=== PATIENT | male | born 1985 | race Caucasian/White ===

== ENCOUNTER 2017-02-26 17:22 | Emergency (ER) | payer SELFPAY ==
[2017-02-26] MEDS ORDERED: HYOSCYAMINE SULFATE 0.125 MG TAB PO ONE (17:47)
[2017-02-26] MEDS ORDERED: MAG HYDROX/AL HYDROX/SIMETH 30 ML UDCUP PO ONE (17:47)
[2017-02-26 17:51] LABS: % IMMATURE GRANULYOCYTES 0.3 % (0.0-1.1); ABSOLUTE IMMATURE GRANULOCYTES 0.04 10^3/uL (0.00-0.10); ADD DIFF? NO; ADD MORPH? NO; ADD SCAN? NO; ATYPICAL LYMPHOCYTE FLAG 10 (0-99); FRAGMENT RBC FLAG 0 (0-99); HEMATOCRIT 48.7 % (40.0-51.0); HEMOGLOBIN 17.7 g/dL (13.7-17.5); LEFT SHIFT FLG 0 (0-99); LIPEMIA HEMOLYSIS FLAG 90 (0-99); MEAN CELL HEMOGLOBIN 30.3 pg (27.9-34.1); MEAN CELL HEMOGLOBIN CONCENTR. 36.3 g/dL (32.4-36.7); MEAN CELL VOLUME 83.4 fL (81.5-99.8); MEAN PLATELET VOLUME 10.4 fL (8.7-11.7); PLATELET CLUMPS FLAG 0 (0-99); PLATELET COUNT 398 10^3/uL (150-400); RED BLOOD CELL COUNT 5.84 10^6/uL (4.40-6.38); RED CELL DISTRIBUTION WIDTH 12.3 % (11.5-15.2)
--- NOTE | 2017-02-26 17:53 | EDPHY ---
H & P Time Seen by Provider: 02/26/17 17:33 HPI/ROS: This patient reports epigastric and right upper quadrant pain intermittently for the past 2 weeks. He describes this as a dull pressure and pushing sensation that typically last for about 10 minutes at a time and then resolves. It does not radiate. He currently has the pain at if 3/10 intensity. In addition, over the past 1 week he describes substernal chest pressure that is also dull in nature peak intensity 4/10 also intermittent. It seems unrelated in timing to the upper belly pain. He does have a cough for the past 1 week that is primarily dry cough with slightly tight chest but he reports some sputum production in the morning that is green in color. He also reports some fits of coughing . However, he also does not feel that there is a correlation between breathing or coughing and the chest discomfort he is experiencing intermittently. ROS: One-week history of fevers and chills. No other constitutional symptoms. HEENT: No significant nasal congestion or face pain. No sore throat. Neuro: No headache no focal neuro symptoms. Pulmonary: No hemoptysis. No pleuritic pain. No respiratory distress. Cardiovascular: No heart palpitations lightheadedness or lower extremity swelling. GI: He has some nausea but no vomiting. He still tolerating good p.o. intake. He reports slightly loose stools but no minoo diarrhea. No blood in his stools or dark tarry stools. : No symptoms Integumentary: No rash or other complaints Endocrine: No complaints Complete ROS is otherwise negative Source: Patient Exam Limitations: No limitations - Personal History Current Tetanus Diphtheria and Acellular Pertussis (TDAP): Yes - Medical/Surgical History PMH: Mild asthma. Otherwise healthy Hx Asthma: Yes Hx Chronic Respiratory Disease: No Hx Diabetes: No Hx Cardiac Disease: No Hx Renal Disease: No Hx Cirrhosis: No Hx Alcoholism: No Hx HIV/AIDS: No Hx Splenectomy or Spleen Trauma: No Other PMH: Asthma - Family History Significant Family History: Heart disease (His father has a history of coronary artery disease with stents but not until he was in his 70s.) - Social History Smoking Status: Never smoked Alcohol Use: Rarely Drug Use: Marijuana Additional Social History: No cocaine use - Physical Exam Exam: General Appearance: Alert, no distress. Eyes: Pupils equal and round no pallor or injection. ENT, Mouth: Mucous membranes moist. Respiratory: Min. ronchi. No wheezing is appreciated. No rales. Cardiovascular: Regular rate and rhythm. No murmur gallop rub. No JVD. No peripheral edema. Gastrointestinal: Normoactive, soft, minimal epigastric tenderness with no guarding or rebound. No organomegaly. Neurological: GCS 15 with no focal sensory or motor deficits. Skin: Warm and dry, no rashes. Musculoskeletal: Neck is supple nontender. Extremities are symmetrical, full range of motion. Psychiatric: Mood and affect normal DIFFERENTIAL DIAGNOSIS: After history and physical exam differential diagnosis was considered for bronchitis, asthma exacerbation, gastritis, cholecystitis, pancreatitis, pericarditis, GERD, esophagitis, coronary artery disease, Constitutional: Initial Vital Signs Temperature (C) 37.2 C 02/26/17 17:29 Heart Rate 87 02/26/17 17:29 Respiratory Rate 18 02/26/17 17:29 Blood Pressure 132/105 H 02/26/17 17:29 O2 Sat (%) 100 02/26/17 17:29 O2 Delivery Mode Room Air Allergies/Adverse Reactions: naproxen sodium [From Aleve] Allergy (Unknown, Verified 10/23/16 21:53) Unknown Home Medications: Medication Instructions Recorded Albuterol 5 mg/ml INH 02/26/17 Albuterol Hfa Anes Only [Proair 2 puffs IH Q4 PRN #1 mdi 02/26/17 Hfa Icu (*)] Azithromycin [Zithromax] 250 mg PO DAILY #6 tab 02/26/17 Pantoprazole Sodium [Protonix 40mg 40 mg PO DAILY #30 tab 02/26/17 (*)] Medical Decision Making - Diagnostics EKG Interpretation: 12 lead EKG performed at 5:51 p.m. reveals sinus rhythm at 73 Intervals: Normal throughout [place]: Normal throughout ST segments: Normal throughout Overall assessment: Normal EKG ED Course/Re-evaluation: GI cocktail with some improvement in symptoms Discussion: Patient with bronchitis and epigastric pain. Workup here today reveals no evidence of coronary syndrome, PE, pneumonia, pneumothorax or other concerning findings. Clinically does have bronchitis and counseled him regarding this. I suspect he has an element of gastritis contributing to his symptoms or GERD. I counseled patient regarding this. - Data Points Laboratory Results: Laboratory Results 02/26/17 17:40 02/26/17 17:40 Medications Given: Discontinued Medications Al Hydroxide/Mg Hydroxide (Maalox Susp) 30 ml PO ONCE ONE Stop: 02/26/17 17:48 Last Admin: 02/26/17 17:54 Dose: 30 ml Hyoscyamine Sulfate (Levsin, Hyomax-Sl) 0.25 mg PO ONCE ONE Stop: 02/26/17 17:48 Last Admin: 02/26/17 17:53 Dose: 0.25 mg Departure - Departure Disposition: Home, Routine, Self-Care Clinical Impression: Upper abdominal pain Acute bronchitis Qualifiers: Bronchitis organism: unspecified organism Qualified Code(s): J20.9 - Acute bronchitis, unspecified Chest pain Qualifiers: Chest pain type: unspecified Qualified Code(s): R07.9 - Chest pain, unspecified Condition: Good Instructions: Gastritis (ED), Acute Bronchitis (ED) Additional Instructions: Diagnosis: 1. Acute bronchitis 2. Chest pain 3. Bronchitis Plan: Humidifier Albuterol inhaler with spacer for cough, wheeze or shortness of breath Zithromax antibiotic Protonix or Prilosec-40 mg a day [place] diet until he feel improved Follow up with Dr. Rogel establish primary care physician If your upper belly pain persists despite the treatment plan, then follow up with Dr. Alba middleton-GI specialist for further evaluation Return to the emergency department for any significant worsening despite treatment plan. Referrals: NONE *PRIMARY CARE P,. [Primary Care Provider] - As per Instructions Bart Kaur MD [Medical Doctor] - As per Instructions Tameka Rogel MD [Doctor of Osteopathy] - As per Instructions Prescriptions: Albuterol Hfa Anes Only [Proair Hfa Icu (*)] 2 puffs IH Q4 PRN #1 mdi PRN Reason: Wheezing Azithromycin [Zithromax] 250 mg PO DAILY #6 tab Pantoprazole Sodium [Protonix 40mg (*)] 40 mg PO DAILY #30 tab
--- NOTE | 2017-02-26 17:53 | CPEKG ---
Heart Rate: 73 RR Interval: 822 P-R Interval: 164 QRSD Interval: 68 QT Interval: 372 QTC Interval: 410 P [place]: 44 QRS [place]: 15 T Wave [place]: 44 EKG Severity - NORMAL ECG - EKG Impression: SINUS RHYTHM Electronically Signed By: Wagner Brooks 26-Feb-2017 23:15:25
[2017-02-26 18:04] LABS: ALANINE AMINOTRANSFERASE 50 IU/L (21-72); ALBUMIN 4.9 g/dL (3.5-5.0); ALKALINE PHOSPHATASE 121 IU/L (38-126); ANION GAP 23 mEq/L (8-16); ASPARTATE AMINOTRANSFERASE 28 IU/L (17-59); BILIRUBIN,TOTAL 0.9 mg/dL (0.1-1.4); CALCIUM 10.2 mg/dL (8.5-10.4); CARBON DIOXIDE 18 mEq/l (22-31); CHLORIDE 103 mEq/L (97-110); CREATININE 0.9 mg/dL (0.7-1.3); GLOMERULAR FILTRATION RATE > 60; GLUCOSE 101 mg/dL (70-100); POTASSIUM 4.5 mEq/L (3.5-5.2); SODIUM 144 mEq/L (134-144); TOTAL PROTEIN 8.9 g/dL (6.3-8.2)
[2017-02-26 18:14] LABS: TROPONIN I < 0.012 ng/mL (0-0.034)
[2017-02-26 19:16] VITALS: BP 131/87; PULSE 82; RESP 20; TEMP 98.2; O2SAT 96
== END 2017-02-26 19:16 | disposition home or self-care (01) ==
LOC: CED 17:22
DX: R10.10 Upper abdominal pain, unspecified (principal); J20.9 Acute bronchitis, unspecified; J45.909 Unspecified asthma, uncomplicated
CPT/HCPCS: 71020-PO; 80053-PO; 83690-PO; 84484-PO; 85025-PO